=== PATIENT | male | born 1970 | race Caucasian/White ===

== ENCOUNTER 2018-10-11 10:02 | Emergency (ER) | payer OTHER ==
[2018-10-11 11:13] VITALS: BP 129/85
--- NOTE | 2018-10-11 11:51 | UC ---
Skin Complaint HPI - HPI Summary HPI Summary: 48 year old male with no significant pmhx here with complaint of rash to back and body that started yesterday. Patient reports he had upper back pain for over one week, had workup by his PMD including imaging. But now developed rash to upper back and axilla with with pruritus. No fever, nausea or vomiting or diarrhea or URI symptoms. Of note, he reports he had zoster that presented this way few years ago, requiring admission because he was severely ill. - History of Current Complaint Chief Complaint: UCRash Time Seen by Provider: 10/11/18 11:28 Stated Complaint: RASH Hx Obtained From: Patient Onset/Duration: Sudden Onset Onset Severity: Mild Pain Intensity: 7 Location: Diffuse Aggravating Factor(s): Nothing Associated Signs & Symptoms: Positive: Negative - Allergy/Home Medications Allergies/Adverse Reactions: Allergies Allergy/AdvReac Type Severity Reaction Status Date / Time No Known Allergies Allergy Verified 10/11/18 11:14 Home Medications: Home Medications Glimepiride 2 mg PO DAILY 10/11/18 [History Confirmed 10/11/18] Lisinopril 10 mg PO DAILY 10/11/18 [History Confirmed 10/11/18] Omeprazole 20 mg PO BID 10/11/18 [History Confirmed 10/11/18] Pravastatin Sodium 40 mg PO DAILY 10/11/18 [History Confirmed 10/11/18] Tramadol HCl/Acetaminophen [Ultracet] 1 tab PO Q6HR PRN 10/11/18 [History Confirmed 10/11/18] PMH/Surg Hx/FS Hx/Imm Hx Previously Healthy: Yes - Surgical History Surgical History: Yes Surgery Procedure, Year, and Place: gallbladder - Social History Alcohol Use: Occasionally Substance Use Type: None Smoking Status (MU): Former Smoker Type: Smokeless Tobacco Length of Time of Smoking/Using Tobacco: 14 yrs When Did the Patient Quit Smoking/Using Tobacco: 2010 Review of Systems All Other Systems Reviewed And Are Negative: Yes Constitutional: Positive: Negative Skin: Positive: Rash Eyes: Positive: Negative ENT: Positive: Negative Respiratory: Positive: Negative Is Patient Immunocompromised?: No Physical Exam Triage Information Reviewed: Yes Appearance: Well-Appearing Vital Signs: Initial Vital Signs Temp 37.3 C 10/11/18 11:02 Pulse 64 10/11/18 11:02 Resp 16 10/11/18 11:02 BP 129/85 03/31/19 11:02 Pulse Ox 96 10/11/18 11:02 Vital Signs Reviewed: Yes Eye Exam: Normal ENT Exam: Normal Respiratory Exam: Normal Cardiovascular Exam: Normal Musculoskeletal Exam: Normal Neurological Exam: Normal Skin: Positive: Rashes, Other - upper back and under arm macular lesions with small papules, no vesicles, warm to touch, blanching Course/Dx - Course Course Of Treatment: patient is well appearing, non-toxic, Based on his prior history of similar zoster presentation, will treat for zoster and also cellulitis as exam shows erythema with warmth to touch. Will dc with valacyclovir and keflex. Return precautions and ED visit given. Follow up with PMD in 1-2 days and given instructions for benadryl prn. - Differential Diagnoses - Skin Complaint Differential Diagnoses: Allergic Reaction, Cellulitis, Varicella Zoster - Diagnoses Provider Diagnosis: Rash and nonspecific skin eruption Discharge - Sign-Out/Discharge Documenting (check all that apply): Patient Departure All imaging exams completed and their final reports reviewed: No Studies - Discharge Plan Condition: Good Disposition: HOME Prescriptions: Cephalexin CAP* [Keflex CAP*] 500 mg PO QID 10 Days cap ValACYclovir (*) [Valtrex 1 GM(*)] 1 gm PO TID #21 tab Patient Education Materials: Shingles (ED), Cellulitis (ED) Referrals: Sanjiv Hahn MD [Primary Care Provider] - Additional Instructions: Follow up with your doctor in 2-3 days. GO to the ED if you develop fever or any life threatening symptoms. - Billing Disposition and Condition Condition: GOOD Disposition: Home
== END 2018-10-11 12:02 | disposition home or self-care (01) ==
LOC: UCCORT 10:02
DX: R21 Rash and other nonspecific skin eruption (principal); L29.9 Pruritus, unspecified; Z87.891 Personal history of nicotine dependence
CPT/HCPCS: 99202; G0463